=== PATIENT | female | born 1980 | race Caucasian/White ===

== ENCOUNTER 2021-11-15 20:01 | Emergency (ER) | payer OTHER ==
[~2021-11-15] VITALS: Ht 165.1 cm; Wt 109.6 kg
--- NOTE | 2021-11-15 20:45 | PHYS DOC ---
General Adult EDM: Chief Complaint: ANKLE PROBLEM HPI: HPI: Patient is a 41 year old female patient presenting to the ED today complaining of mild intermittent right ankle pain, symptoms began today after she stepped on a curb and rolled her ankle. Patient states the pain is worse on weightbearing. Denies anything specifically relieving the pain. Describes the pain as sharp. Review of Systems: Review of Systems: Constitutional: Denies fever or chills. [] Musculoskeletal: Reports right ankle pain Integument: Denies rash. [] Neurologic: Denies headache, focal weakness or sensory changes. [] ] Psychiatric: Denies depression or anxiety. [] Heart Score: C/O Chest Pain: N/A Risk Factors: Risk Factors: DM, Current or recent (<one month) smoker, HTN, HLP, family history of CAD, obesity. Risk Scores: Score 0 - 3: 2.5% MACE over next 6 weeks - Discharge Home Score 4 - 6: 20.3% MACE over next 6 weeks - Admit for Clinical Observation Score 7 - 10: 72.7% MACE over next 6 weeks - Early Invasive Strategies Physical Exam: PE: Constitutional: Well developed, well nourished, no acute distress, non-toxic appearance. [] Skin: Warm, dry, no erythema, no rash. [] Back: No tenderness, no CVA tenderness. [] Extremities: Right lateral ankle with mild soft tissue swelling, tenderness on palpation of the right lateral ankle, limited range of motion to the right ankle due to pain. +2 right pedal pulse. Cap refill less than 2 seconds to right toes Neurologic: Alert and oriented X 3, normal motor function, normal sensory function, no focal deficits noted. [] Psychologic: Affect normal, judgement normal, mood normal. [] EKG: EKG: [] Radiology/Procedures: Radiology/Procedures: [] Course & Med Decision Making: Course & Med Decision Making Pertinent Labs and Imaging studies reviewed. (See chart for details) This a 41-year-old female patient presented to the ED today with right ankle pain, symptoms began today after she stepped on a curb and rolled the ankle. Right ankle x-rays interpreted by Dr. Brown noted for distal fibula fracture. Patient placed in a stirrup splint by the ED RN, neurovascular exam done by RN i s normal. Ice elevation encouraged. Provided contact information for orthopedic doctor and instructed to call them tomorrow morning and set up a follow-up appointment. Kendall Disclaimer: Kendall Disclaimer: This electronic medical record was generated, in whole or in part, using a voice recognition dictation system. Departure Departure Impression: Primary Impression: Fracture of distal fibula Qualified Codes: S82.831A - Other fracture of upper and lower end of right fibula, initial encounter for closed fracture Disposition: HOME / SELF CARE / HOMELESS Condition: STABLE Referrals: NO PCP (PCP) LIZZETH SANDERSON MD call tomorrow and set up a follow up appointment Patient Instructions: Fibular Fracture with [facility] Additional Instructions: You have distal fibula fracture on your right ankle. Please contact the provided orthopedic doctor tomorrow morning and set up a follow-up appointment. Try to ice and elevate the extremity. Take the pain medicine ordered as needed for pain. You can also take naproxen. Scripts Hydrocodone Bit/Acetaminophen (HYDROCODONE-APAP 5-325 ) 1 Tab Tablet 1 TAB PO PRN Q6HRS PRN for PAIN, #20 TAB 0 Refills Prov: KARMA ODEN APRN 11/15/21 KARMA ODEN APRN Nov 15, 2021 20:45
[2021-11-15] MEDS ORDERED: NAPROXEN 500 MG TABLET PO STA (21:43)
[2021-11-15] MEDS ORDERED: HYDROcodone/APAP 5/325MG 1 TAB TABLET PO ONE (21:45)
--- NOTE | 2021-11-15 22:55 | RAD ---
Exam: Right ankle 3 views INDICATION: Pain TECHNIQUE: Frontal, lateral and oblique views of the right ankle Comparisons: None FINDINGS: Obliquely oriented acute fracture to the distal fibula which is mildly displaced. Diffuse surrounding soft tissue swelling. Joint spaces are well-maintained. Bone mineralization is normal. IMPRESSION: 1. Obliquely oriented fracture to the distal fibula, mildly displaced. 2. Mild widening at the medial clear space suggesting underlying ligamentous injury. Electronically signed by: Александр Stark MD (11/15/2021 10:53 PM) YOANDY
[2021-11-15] MEDS ORDERED: HYDR-2761 PO (22:58)
[2021-11-15 23:05] VITALS: BP 111/58
== END 2021-11-15 23:05 | disposition home or self-care (01) ==
LOC: ER 20:01
DX: S82.831A Other fracture of upper and lower end of right fibula, initial encounter for closed fracture (principal); W21.89XA Striking against or struck by other sports equipment, initial encounter; Y93.89 Activity, other specified; Y92.89 Other specified places as the place of occurrence of the external cause; Y99.8 Other external cause status
CPT/HCPCS: 29515; 73610; 99283

== ENCOUNTER → 2021-11-22 | Outpatient (CLI) | payer OTHER ==
[2021-11-15 23:05] VITALS: BP 111/58
[~2021-11-22] MED LIST: BUPR300T3 PO; FLUO40CA9 PO; HYDR-2761 PO; LEVO150T PO
--- NOTE | 2021-11-23 08:45 | NUR ---
Notified Christian Pate that patient is covid positive. Dr Pate wants to proceed with surgery 3/ as urgent/emergent.
--- NOTE | 2021-11-23 11:15 | NUR ---
Called the patient to give her update time for surgery 11/24. While speaking with the patient she mentioned she was recently positive for covid. She looked up results and her positive result was on 09/07/21. No retest should have been done until after 12/06/21. Spoke with Gauri in infection control who states we will go by 09/07 positive result. Patient is considered negative for covid. Informed patient to bring the in proof of 09/07 positive on day of surgery.
== END ==
LOC: LAB 10:32
PROVIDERS: ATTEND Podiatrist
DX: Z01.812 Encounter for preprocedural laboratory examination (principal); U07.1 COVID-19
CPT/HCPCS: U0003

== ENCOUNTER 2021-11-24 05:52 | Day surgery (SDC) | payer OTHER ==
[~2021-11-24] VITALS: Ht 165.1 cm; Wt 104.5 kg
[~2021-11-24 05:52] MED LIST changes: -BUPR300T3 PO; -FLUO40CA9 PO; -LEVO150T PO
[2021-11-24] MEDS ORDERED: fentaNYL PF VIAL 100 MCG/2 ML VIAL IVP PRN (06:00)
[2021-11-24] MEDS ORDERED: HYDROmorphone 2 MG/ML INJ. IVP PRN (06:00)
[2021-11-24] MEDS ORDERED: MORPHINE SULFATE 2 MG/ML INJ. IVP PRN (06:00)
[2021-11-24] MEDS ORDERED: PROCHLORPERAZINE 10 MG/2 ML VIAL. IVP PRN (06:00)
[2021-11-24] MEDS ORDERED: IV RINGERS,LACTATED 1000ML 1,000 ML IV SCH (06:00)
[2021-11-24] MEDS ORDERED: FLUO40CA9 PO (06:22)
[2021-11-24] MEDS ORDERED: LEVO150T PO (06:22)
[2021-11-24] MEDS ORDERED: BUPR300T3 PO (06:22)
[2021-11-24 06:23] VITALS: BP 138/71
[2021-11-24] MEDS ORDERED: PROPOFOL 10 MG/ML (20ML) VIAL. IV ONE (06:31)
[2021-11-24] MEDS ORDERED: KETOROLAC 30 MG/ML VIAL. ONE (06:32)
[2021-11-24] MEDS ORDERED: FAMOTIDINE 20 MG/2 ML VIAL ONE (06:32)
[2021-11-24] MEDS ORDERED: ONDANSETRON PF 4 MG/2 ML VIAL. ONE (06:32)
[2021-11-24] MEDS ORDERED: DEXAMETHASONE SOD PHOS 4 MG/ML VIAL ONE (06:32)
[2021-11-24] MEDS ORDERED: ROCURONIUM 50 MG/5 ML VIAL. ONE (06:32)
[2021-11-24] MEDS ORDERED: LIDOCAINE 2% PF 5 ML VIAL. ONE (06:32)
[2021-11-24] MEDS ORDERED: fentaNYL PF VIAL 100 MCG/2 ML VIAL ONE ×2 (06:33→09:56)
[2021-11-24] MEDS ORDERED: MIDAZOLAM HCL/PF 2 MG/2 ML VIAL. ONE (06:40)
[2021-11-24] MEDS ORDERED: VANCOMYCIN 1 GM VIAL. ONE (07:03)
[2021-11-24] MEDS ORDERED: BUPIVACAINE MPF 0.25% 30 ML VIAL. ONE (07:03)
--- NOTE | 2021-11-24 07:39 | PDOC1 ---
History and Physical Date of Admission Date of Admission DATE: 11/24/21 TIME: 07:30 Identification/Chief Complaint Chief Complaint Right ankle fracture Source Source: Patient History of Present Illness History of Present Illness Ms Page is a 41 year old female w/ PMHx hypothyroidism, depression who comes to outpatient surgery for elective right ankle ORIF after a recent fracture. Patient presented to the ED 11/15/21 complaining of mild intermittent right ankle pain after a fall. She fall back down one stair with no LOC/pain to right ankle. Bystander stated she fall to the right of the stairs. Pain to right ankle and foot up the leg. No loss of sensation or function, pain on weight-bearing. Noted on radiograph with distal fibula fracture. Incidentally tested positive for COVID 19 pre op. She notes she is vaccinated and also had COVID 19 in August. No GI symptoms, no respiratory symptoms. She took her levothyroxine Wellbutrin and Zoloft this morning. No history of DVTs she does not drink smoke or use illicit drugs. No previous problems with anesthesia Past Medical History Psych: Depression Endocrine: Hypothyroidism Past Surgical History Past Surgical History: Hysterectomy Family History Family History: Depression Social History Smoke: No ALCOHOL: none Drugs: None Current Medications Current Medications Current Medications Cefazolin Sodium/ Dextrose 50 ml @ 100 mls/hr 1X PREOP PRN IV PRIOR TO PROCEDURE; Start 11/24/21 at 06:00; Stop 11/24/21 at 18:00 Fentanyl Citrate (Fentanyl 2ml Vial) 25 mcg PRN Q5MIN PRN IVP MILD PAIN 1-3; Start 11/24/21 at 06:00; Stop 11/25/21 at 05:59 Fentanyl Citrate (Fentanyl 2ml Vial) 50 mcg PRN Q5MIN PRN IVP MODERATE PAIN 4- 6; Start 11/24/21 at 06:00; Stop 11/25/21 at 05:59 Morphine Sulfate (Morphine Sulfate) 1 mg PRN Q10MIN PRN IVP SEVERE PAIN 7-10; Start 11/24/21 at 06:00; Stop 11/25/21 at 05:59 Ringer's Solution 1,000 ml @ 30 mls/hr Q24H IV Last administered on 11/24/21at 06:33; Start 11/24/21 at 06:00; Stop 11/24/21 at 17:59 Hydromorphone HCl (Dilaudid) 0.5 mg PRN Q10MIN PRN IVP SEVERE PAIN 7-10, 2nd CHOICE; Start 11/24/21 at 06:00; Stop 11/25/21 at 05:59 Prochlorperazine Edisylate (Compazine) 5 mg PACU PRN PRN IVP NAUSEA, MRX1; Start 11/24/21 at 06:00; Stop 11/25/21 at 05:59 Propofol (Diprivan) 200 mg STK-MED ONCE IV ; Start 11/24/21 at 06:31; Stop 11/24/21 at 06:32; Status DC Lidocaine HCl (Lidocaine Pf 2% Vial) 5 ml STK-MED ONCE .ROUTE ; Start 11/24/21 at 06:32; Stop 11/24/21 at 06:32; Status DC Famotidine (Pepcid Vial) 20 mg STK-MED ONCE .ROUTE ; Start 11/24/21 at 06:32; Stop 11/24/21 at 06:32; Status DC Ketorolac Tromethamine (Toradol 30mg Vial) 30 mg STK-MED ONCE .ROUTE ; Start 11/24/21 at 06:32; Stop 11/24/21 at 06:32; Status DC Ondansetron HCl (Zofran) 4 mg STK-MED ONCE .ROUTE ; Start 11/24/21 at 06:32; Stop 11/24/21 at 06:32; Status DC Dexamethasone Sodium Phosphate (Decadron) 4 mg STK-MED ONCE .ROUTE ; Start 11/24/21 at 06:32; Stop 11/24/21 at 06:32; Status DC Rocuronium Ambler (Zemuron) 50 mg STK-MED ONCE .ROUTE ; Start 11/24/21 at 06:32; Stop 11/24/21 at 06:32; Status DC Fentanyl Citrate (Fentanyl 2ml Vial) 100 mcg STK-MED ONCE .ROUTE ; Start 11/24/21 at 06:33; Stop 11/24/21 at 06:33; Status DC Midazolam HCl (Versed) 2 mg STK-MED ONCE .ROUTE ; Start 11/24/21 at 06:40; Stop 11/24/21 at 06:40; Status DC Bupivacaine HCl (Sensorcaine Mpf 0.25%) 30 ml STK-MED ONCE .ROUTE ; Start 11/24/21 at 07:03; Stop 11/24/21 at 07:03; Status DC Vancomycin HCl (Vancomycin) 1 gm STK-MED ONCE .ROUTE ; Start 11/24/21 at 07:03; Stop 11/24/21 at 07:03; Status DC Active Scripts Active Hydrocodone-Apap 5-325 (Hydrocodone Bit/Acetaminophen) 1 Tab Tablet 1 Tab PO PRN Q6HRS PRN Reported Wellbutrin Xl (Bupropion Hcl) 300 Mg Tab.er.24h 300 Mg PO DAILY Prozac (Fluoxetine Hcl) 40 Mg Capsule 40 Mg PO DAILY Synthroid (Levothyroxine Sodium) 150 Mcg Tablet 150 Mcg PO DAILYAC Allergies Allergies: Coded Allergies: No Known Drug Allergies (Unverified , 11/24/21) ROS General: No: Chills, Night Sweats, Fatigue, Malaise, Appetite, Other PSYCHOLOGICAL ROS: No: Anxiety, Behavioral Disorder, Concentration difficultie, Decreased libido, Depression, Disorientation, Hallucinations, Hostility, Irritablity, Memory difficulties, Mood Swings, Obsessive thoughts, Physical abuse, Sexual abuse, Sleep disturbances, Suicidal ideation, Other Eyes: No Blurry vision, No Decreased vision, No Double vision, No Dry eyes, No Excessive tearing, No Eye Pain, No Itchy Eyes, No Loss of vision, No Photophobia, No Scotomata, No Uses contacts, No Uses glasses, No Other HEENT: No: Heacaches, Visual Changes, Hearing change, Nasal congestion, Nasal discharge, Oral lesions, Sinus pain, Sore Throat, Epistaxis, Sneezing, Snoring, Tinnitus, Vertigo, Vocal changes, Other ALLERGY AND IMMUNOLOGY: No: Hives, Insect Bite Sensitivity, Itchy/Watery Eyes, Nasal Congestion, Post Nasal Drip, Seasonal Allergies, Other Hematological and Lymphatic: No: Bleeding Problems, Blood Clots, Blood Transfusions, Brusing, Night Sweats, Pallor, Swollen Lymph Nodes, Other ENDOCRINE: No: Breast Changes, Galactorrhea, Hair Pattern Changes, Hot Flashes, Malaise/lethargy, Mood Swings, Palpitations, Polydipsia/polyuria, Skin Changes, Temperature Intolerance, Unexpected Weight Changes, Other Breast: No New/Changing Breast Lumps, No Nipple changes, No Nipple discharge, No Other Respiratory: No: Cough, Hemoptysis, Orthopnea, Pleuritic Pain, Shortness of breath, SOB with excertion, Sputum Changes, Stridor, Tachypnea, Wheezing, Other Cardiovascular: No Chest Pain, No Palpitations, No Orthopnea, No Paroxysmal Noc. Dyspnea, No Edema, No Lt Headedness, No Other Gastrointestinal: No Nausea, No Vomiting, No Abdominal Pain, No Diarrhea, No Constipation, No Melena, No Hematochezia, No Other Genitourinary: No Dysuria, No Frequency, No Incontinence, No Hematuria, No Retention, No Discharge, No Urgency, No Pain, No Flank Pain, No Other, No , No , No , No , No , No , No Musculoskeletal: Yes Gait Disturbance, Yes Joint Pain; No Joint Stiffness, No Joint Swelling, No Muscle Pain, No Muscular Weakness, No Pain In:, No Swelling In:, No Other Neurological: No Behavorial Changes, No Bowel/Bladder ControlChng, No Confusion, No Dizziness, No Gait Disturbance, No Headaches, No Impaired Coord/balance, No Memory Loss, No Numbness/Tingling, No Seizures, No Speech Problems, No Tremors, No Visual Changes, No Weakness, No Other Skin: No Dry Skin, No Eczema, No Hair Changes, No Lumps, No Mole Changes, No Mottling, No Nail Changes, No Pruritus, No Rash, No Skin Lesion Changes, No Other, No Acne Physical Exam General: Alert, Oriented X3, Cooperative, mild distress HEENT: PERRLA Lungs: Clear to auscultation, Normal air movement Heart: S1S2, RRR, no thrills, no rubs, no gallops, no murmurs Abdomen: Normal bowel sounds, Soft, No tenderness, No hepatosplenomegaly, No masses Extremities: No clubbing, No cyanosis, No edema, Normal pulses, Other (Right ankle in splint, wrapped) Neuro: Normal speech, Strength at 5/5 X4 ext, Normal tone, Sensation intact, Cranial nerves 3-12 NL, Reflexes 2+ Psych/Mental Status: Mental status NL, Mood NL Vitals Vitals Vital Signs Date Time Temp Pulse Resp B/P (MAP) Pulse Ox O2 Delivery O2 Flow Rate FiO2 11/24/21 06:28 97.0 83 138/71 98 Room Air 97.0 11/24/21 06:23 14 Images Images 11/15/21 right ankle radiograph: Obliquely oriented acute fracture to the distal fibula which is mildly displaced. Diffuse surrounding soft tissue swelling. Joint spaces are well- maintained. Bone mineralization is normal. IMPRESSION: 1. Obliquely oriented fracture to the distal fibula, mildly displaced. 2. Mild widening at the medial clear space suggesting underlying ligamentous injury. VTE Prophylaxis Ordered VTE Prophylaxis Devices: Yes VTE Pharmacological Prophylaxi: No Assessment/Plan Assessment/Plan Right ankle distal fibula fracture - in a stirrup splint. No further testing prior to planned surgery. Hypothyroidism - on oral levothyroxine, took her dose today Depression - took her morning meds FEN - NPO PPX - SCDS FULL CODE Dispo - outpatient surgery. no further testing. Will be nonweightbearing likely for 6 weeks. Call [phone] for further questions or if patient is unable to be safely discharged Justifications for Admission Other Justification DIANA SALAZAR MD Nov 24, 2021 07:39
[2021-11-24] MEDS ORDERED: SEVOFLURANE 61 TO 120 MINUTES. IH ONE (08:05)
[2021-11-24] MEDS ORDERED: DESFLURANE 61 TO 120 MINUTES IH ONE (08:06)
[2021-11-24] MEDS ORDERED: oxyCODONE/APAP 5/325 1 TAB TABLET PO ONE (09:45)
[2021-11-24] MEDS ORDERED: ACETAMINOPHEN 325 MG TABLET. PO ONE (09:45)
[2021-11-24] MEDS ORDERED: GABAPENTIN 100 MG CAPSULE. PO ONE (09:45)
--- NOTE | 2021-11-24 09:45 | PDOC4 ---
OPERATIVE NOTE Date: Date: Nov 24, 2021 Pre-Op Diagnosis: Right closed trimalleolar fracture with syndesmotic instability Post-Op Diagnosis: Same as above Procedure Performed: Right trimalleolar ankle fracture ORIF and syndesmotic repair Surgeon: Jerman Love DPM Anesthesia Type: General Blood Loss: 5 cc Specimans Obtained: None Findings: Long spiral fracture extending from the ankle joint proximally with telescoping displacement. The distal syndesmotic ligament was partially torn with mild instability upon stress. The posterior tibial fracture involves approximately 20% of the posterior articular facet. Posterior fibular reduction and ORIF of the posterior fragment remarked adequate gnosticist of the posterior tibial plafond. Complications: None Operative Note: Under mild sedation, patient was brought into the operating room and placed on an operating table in a supine position. Following a formal timeout, patient's identity, procedure and procedure sites were confirmed. Following IV prophylactic antibiotics, general anesthesia, a well-padded thigh tourniquet was placed to the right lower extremity. Then the right lower extremity was then scrubbed, prepped and draped using standard aseptic techniques. An Esmarch was used to exsanguinate the right foot and ankle and tourniquet was inflated to 250 millimercury. The attention was directed to the right ankle where a standard lateral approach was performed. Great care was taken to identify and retract all the neurovascular bundles including the superficial peroneal nerve. All bleeders were cauterized as necessary. Using sharp and blunt dissection, incision was taken deep to periosteum which was incised. Intraoperatively, we found a long spiral fibula fracture extending from the ankle joint to the proximal fibular shaft. The distal syndesmotic ligament was partially torn and noted mild instability upon stress. The hematoma was evacuated and all interposed periosteum was removed from the fracture site. The wound was irrigated with copious saline then. At this time, the fracture was reduced with 2 bone clamps. Using standard AO technique, the fracture was stabilized with 3.5 millimeter screws from A to P. Intraoperative x-ray noted adequate fibular length gnosticist with restored dime sign. Then a standard anatomical fibular plate was placed to the lateral fibula and temporarily affixed with 2 olive wires. Intraoperative x-ray noted adequate position allowing potential 2 syndesmotic screws and adequate proximal fracture bridging. Then using standard AO techniques, 3.5 millimeter screws were used to affix the plate to the fibula. Again intraoperative x-ray noted adequate hardware position and length. Then, the attention was directed to the posterior tibial fragment. Following the fibula fracture repair, the fracture fragment spontaneously reduced to near anatomical position. Then a dental pick was used through the lateral fibular incision window to further assist reduction of the posterior tibial fracture. Passive ankle joint dorsiflexion was used to engage the PITFL. Then a guidewire was introduced from the anterior lateral distal tibia posteriorly to capture the posterior tibial fracture. Adequate fracture reduction and gnosticist of the tibial plafond were noted. A small stab incision was placed and widened bluntly near the guidewire site. Then using standard AO technique, a 3.5 mm fully threaded screw was used and lagged by technique to secure the posterior tibial fragment. Intraoperative syndesmotic stress test was performed which noted minimal diastases across the tib-fib. Then Arthrex tight rope x1 was placed through the distal lateral fibular plate to restore syndesmotic joint stability. Finger palpation noted adequate fibular reduction into the incisure. Intraoperatively, we also noted restored Nila sign to the anterior lateral ankle gutter. The hardware position, trajectory and length were confirmed with satisfactory using intraoperative x-ray. Then stress test was noted negative. The surgical sites were irrigated with copious saline solution. They were then closed in layers with 3-0 Vicryl, 4 Monocryl and 4 nylon. Then the surgical sites were anesthetized with 10 cc of 0.25% Marcaine plain. The sites were dressed with Betadine soaked Adaptic, 4 x 4, ABD. The right lower extremity was then immobilized in a modified English compression splint with ankle held near 90 degrees. Then the tourniquet was deflated and adequate digital perfusion was noted. Patient tolerated the procedure and anesthesia well and then transferred to PACU for continuous recovery. Pending right ankle 3 view x-ray. JERMAN LOVE DPM Nov 24, 2021 09:45
[2021-11-24] MEDS: fentaNYL PF VIAL 100 MCG/2 ML VIAL IVP PRN ×2 (10:00→10:38)
[2021-11-24] MEDS ORDERED: LIDOCAINE 1% PF 2 ML VIAL. ONE (10:01)
[2021-11-24] MEDS ORDERED: ROPIVacaine 0.5% PF 20 ML VIAL. ONE (10:02)
[2021-11-24] MEDS ORDERED: MORPHINE SULFATE 2 MG/ML INJ. ONE (10:41)
[2021-11-24 10:44] VITALS: BP 120/56
--- NOTE | 2021-11-24 10:58 | RAD ---
XR EXAM OF ANKLE_RIGHT 3VIEWS History: Postop ankle fixation FINDINGS/ IMPRESSION: Postsurgical features from plate and screw fixation of the lateral distal fibula and screw fixation o f posterior malleolar fracture with ankle syndesmotic repair. No new osseous abnormality is identifie d. Alignment is near-anatomic. Evaluation is limited by bulky splint material. Electronically signed by: Robbie Whittaker MD (11/24/2021 10:55 AM) [id number]
== END 2021-11-24 11:15 | disposition home or self-care (01) ==
LOC: SURG 05:52
PROVIDERS: ATTEND Podiatrist
DX: S82.851A Displaced trimalleolar fracture of right lower leg, initial encounter for closed fracture (principal); K21.9 Gastro-esophageal reflux disease without esophagitis; E03.9 Hypothyroidism, unspecified; F32.9 Major depressive disorder, single episode, unspecified; F17.210 Nicotine dependence, cigarettes, uncomplicated; Z79.899 Other long term (current) drug therapy; Z98.890 Other specified postprocedural states; X58.XXXA Exposure to other specified factors, initial encounter; Y93.89 Activity, other specified; Y92.89 Other specified places as the place of occurrence of the external cause; Y99.8 Other external cause status
CPT/HCPCS: 27822; 27829; 73610; A4209; A4930; A6223; A6253; A6402; A6449; A6450; C1713; J0690; J1100; J1885; J2250; J2270; J2405; J2704; J2795; J3010; J3490; 76000; A4223; A6455; J3370